=== PATIENT | female | born 1945 | race Caucasian/White ===

== ENCOUNTER 2017-08-26 11:20 | Outpatient (CLI) | payer MEDICARE | END 2017-08-26 11:21 | disposition home or self-care (01) | LOC: BICMAMMO 11:20 | PROVIDERS: ATTEND Internal Medicine | DX: Z12.31 Encounter for screening mammogram for malignant neoplasm of breast (principal) | CPT/HCPCS: 77063 ==

== ENCOUNTER 2018-03-06 07:44 | Outpatient (CLI) | payer MEDICARE ==
--- NOTE | 2018-03-06 09:55 | MRI ---
MRI BRAIN WITH AND WITHOUT IV CONTRAST: HISTORY: Essential tremor. FINDINGS: Comparison is made with the exam of 02/09/10. There is ventricular sulcal prominence due to cortical atrophy. Multiple foci of T2 prolongation is seen in the periventricular white matter consistent with chronic small-vessel ischemic disease. No r estricted diffusion is seen. No evidence of infarct, hemorrhage, mass, midline shift, or abnormal ex traaxial fluid collections is seen. No abnormal postcontrast enhancement is noted. The visualized paranasal sinuses and mastoid air cells are well aerated. IMPRESSION: 1. Cortical atrophy. 2. Chronic small-vessel ischemic disease. 3. No evidence of acute intracranial process or mass. POS: [facility]
[2018-03-06] MEDS ORDERED: Gadobenate Dimeglumine 529 MG/1 ML (20ML VIAL) ONE (11:29)
--- NOTE | 2018-03-06 12:14 | PET ---
PET CT OF THE BRAIN: HISTORY: Tremor, memory loss. TECHNIQUE: PET CT of the brain was performed following the intravenous administration of 8.4 mCi [id number]. FINDINGS: No significant hypometabolism is seen in either cerebral hemisphere. Uptake in the posterior cingulat e cortex appears normal. IMPRESSION: Unremarkable exam. POS: [facility]
== END 2018-03-06 07:45 | disposition home or self-care (01) ==
LOC: MRI 07:44
PROVIDERS: ATTEND Psychiatry & Neurology Neurology
DX: Z01.812 Encounter for preprocedural laboratory examination (principal); G25.0 Essential tremor; G31.1 Senile degeneration of brain, not elsewhere classified; G31.89 Other specified degenerative diseases of nervous system
CPT/HCPCS: 70553; 78608; 82565; A9552; 36415; A9579

== ENCOUNTER 2018-06-01 16:44 | Emergency (ER) | payer MEDICARE ==
[~2018-06-01 16:44] MED LIST: ISOVUE-370 76%-LOCM 1 ML ONE
[2018-06-01 17:17] LABS: #Eosinphils 0.1 thou/uL (0.0-0.7); #Lymphocytes 1.8 thou/uL (1.20-3.40); #Monocytes 0.7 thou/uL (0.11-0.59); #Neutrophils 4.6 thou/uL (1.40-6.50); %Basophils 0.2 % (0.0-1.0); %Lymphocytes 25.3 % (21.0-51.0); %Monocytes 9.8 % (0.0-10.0); %Neutrophils 63.6 % (42.0-75.0); Hemoglobin 13.2 g/dL (12.0-16.0); Mean Corpuscular HGB CONC 33.5 g/dL (32.0-36.0); Mean Corpuscular Volume 92.5 fL (78.0-98.0); Mean Platelet Volume 8.4 fL (7.4-10.4); Platelet Count 200 thou/uL (130-400); RBC Distribution Width 11.5 % (11.5-14.5); Red Blood Cell (RBC) Count 4.26 mill/uL (4.20-5.40); White Blood Cell (WBC) Count 7.2 thou/uL (4.8-10.8)
--- NOTE | 2018-06-01 17:36 | RAD ---
CHEST ONE VIEW: History: 73-year-old female with history of productive cough for four weeks with left lateral chest pain. Comparison: 02-26-17 FINDINGS: Monitor leads overlie the chest. Minimal linear stranding in the left base, evidence for some chronic change. The right lung is clear. Heart size is normal. IMPRESSION: Mild linear stranding left base which appears to be chronic. No significant acute intrathoracic disea se. Atherosclerosis of the aorta. POS: [facility]
[2018-06-01 17:39] LABS: ALT (SGPT) 13 U/L (8-55); AST (SGOT) 14 U/L (5-34); Albumin 4.3 g/dL (3.4-4.8); Alkaline Phosphatase 47 U/L (40-150); Anion Gap 13 mmol/L (10-20); BUN (Urea Nitrogen) 12 mg/dL (9.8-20.1); Bilirubin, Total 0.3 mg/dL (0.2-1.2); CK (CPK) 101 U/L (29-168); Calc. Creatinine Clearance 0 mL/min (70-130); Calcium 9.7 mg/dL (7.8-10.44); Carbon Dioxide 26 mmol/L (23-31); Chloride 106 mmol/L (98-107); Estimated GFR-MDRD 73; Glucose 123 mg/dL (83-110); Potassium 3.9 mmol/L (3.5-5.1); Protein, Total 7.3 g/dL (6.0-8.3); Sodium 141 mmol/L (136-145)
[2018-06-01 17:42] LABS: CKMB 1.4 ng/mL (0-6.6); Troponin I Less than 0.010 ng/mL (< 0.028)
--- NOTE | 2018-06-01 18:52 | CT ---
CT ARTERIOGRAM CHEST WITH IV CONTRAST AND 3D MIP IMAGING: History: Cough. Chest pain. FINDINGS: There is good contrast opacification of the pulmonary arteries and thoracic aorta with normal branchi ng of the great vessels. There is calcification in the arterial structures including the coronary art eries. Mild bibasilar atelectasis and scattered areas of scarring. No pneumothorax or mediastinal salazar nopathy. Gallbladder is surgically absent. IMPRESSION: 1. No CT evidence of pulmonary embolus. 2. Atherosclerosis. POS: [facility]
[2018-06-01 19:09] LABS: INR-International Normal Ratio 0.9; Prothrombin Time 12.4 SEC (12.0-14.7)
[2018-06-01 19:10] LABS: D-Dimer Test 0.84 *mcg/mL (0.27-0.43)
== END 2018-06-01 19:41 | disposition home or self-care (01) ==
LOC: ERS 16:44
DX: J18.9 Pneumonia, unspecified organism (principal); E78.5 Hyperlipidemia, unspecified; E03.9 Hypothyroidism, unspecified; Z87.891 Personal history of nicotine dependence; Z79.899 Other long term (current) drug therapy; Z79.82 Long term (current) use of aspirin
CPT/HCPCS: 36415; 71045; 71275; 80053; 82553; 84484; 85025; 85379; 85610; 85730; 93005

== ENCOUNTER 2018-06-27 09:51 | Emergency (ER) | payer MEDICARE ==
[2018-06-27 10:36] LABS: #Eosinphils 0.1 thou/uL (0.0-0.7); #Lymphocytes 1.2 thou/uL (1.20-3.40); #Monocytes 0.5 thou/uL (0.11-0.59); #Neutrophils 3.8 thou/uL (1.40-6.50); %Basophils 0.3 % (0.0-1.0); %Eosinophils 2.1 % (0.0-10.0); %Lymphocytes 21.4 % (21.0-51.0); %Monocytes 9.5 % (0.0-10.0); %Neutrophils 66.6 % (42.0-75.0); Hemoglobin 13.4 g/dL (12.0-16.0); Mean Corpuscular HGB CONC 32.7 g/dL (32.0-36.0); Mean Corpuscular Hemoglobin 30.4 pg (27.0-31.0); Mean Corpuscular Volume 93.1 fL (78.0-98.0); Mean Platelet Volume 8.7 fL (7.4-10.4); Platelet Count 200 thou/uL (130-400); RBC Distribution Width 11.8 % (11.5-14.5); Red Blood Cell (RBC) Count 4.41 mill/uL (4.20-5.40); White Blood Cell (WBC) Count 5.7 thou/uL (4.8-10.8)
--- NOTE | 2018-06-27 10:36 | RAD ---
CHEST 1 VIEW: Date: 06/27/18 HISTORY: Chest pain. COMPARISON: 06/01/18. FINDINGS: Cardiac silhouette is magnified by projection. Lungs remain slightly hyperinflated. Mediastinum midli ne with aortic calcification. No lobar consolidation or evidence of pneumothorax. monitor and storage bin tender gabriel ds overlie the chest. IMPRESSION: 1. Atherosclerosis. 2. Chronic-type findings are stable. POS: [facility]
[2018-06-27 10:59] LABS: ALT (SGPT) 11 U/L (8-55); AST (SGOT) 14 U/L (5-34); Albumin 4.3 g/dL (3.4-4.8); Alkaline Phosphatase 53 U/L (40-150); Anion Gap 14 mmol/L (10-20); BUN (Urea Nitrogen) 11 mg/dL (9.8-20.1); Bilirubin, Total 0.5 mg/dL (0.2-1.2); CK (CPK) 78 U/L (29-168); Calc. Creatinine Clearance 0 mL/min (70-130); Calcium 9.5 mg/dL (7.8-10.44); Carbon Dioxide 23 mmol/L (23-31); Chloride 109 mmol/L (98-107); Estimated GFR-MDRD 76; Globulin 2.6 g/dL (2.4-3.5); Glucose 116 mg/dL (83-110); Potassium 4.2 mmol/L (3.5-5.1); Protein, Total 6.9 g/dL (6.0-8.3); Sodium 142 mmol/L (136-145)
[2018-06-27 11:02] LABS: CKMB 1.3 ng/mL (0-6.6); Troponin I Less than 0.010 ng/mL (< 0.028)
== END 2018-06-27 11:41 | disposition home or self-care (01) ==
LOC: ERS 09:51
DX: R07.89 Other chest pain (principal); E78.5 Hyperlipidemia, unspecified; E03.9 Hypothyroidism, unspecified; Z79.82 Long term (current) use of aspirin; Z87.891 Personal history of nicotine dependence; Z79.899 Other long term (current) drug therapy
CPT/HCPCS: 71045; 80053; 82550; 82553; 84484; 85025; 93005

== ENCOUNTER 2018-09-03 14:30 | Outpatient (CLI) | payer MEDICARE | END 2018-09-03 14:31 | disposition home or self-care (01) | LOC: BICMAMMO 14:30 | PROVIDERS: ATTEND Internal Medicine | DX: Z12.31 Encounter for screening mammogram for malignant neoplasm of breast (principal); R92.1 Mammographic calcification found on diagnostic imaging of breast | CPT/HCPCS: 77063; 77067 ==

== ENCOUNTER 2019-06-05 13:18 | Emergency (ER) | payer MEDICARE ==
--- NOTE | 2019-06-05 14:21 | ULT ---
US Venous Doppler Rt Unilat History: Edema. Evaluate for thrombosis. Comparison: None. Findings: Real-time grayscale, color, and spectral analysis of the right lower extremity venous syste m was performed. The common femoral, femoral, proximal portions greater saphenous and deep femoral veins as well as the popliteal and posterior tibial veins were interrogated. Normal flow, augmentation, and compression. Impression: No deep venous thrombosis.
[2019-06-05 15:46] LABS: #Eosinphils 0.1 thou/uL (0.0-0.7); #Lymphocytes 1.8 thou/uL (1.20-3.40); #Monocytes 0.4 thou/uL (0.11-0.59); #Neutrophils 3.3 thou/uL (1.40-6.50); %Basophils 0.5 % (0.0-1.0); %Eosinophils 1.2 % (0.0-10.0); %Lymphocytes 32.7 % (21.0-51.0); %Monocytes 7.2 % (0.0-10.0); %Neutrophils 58.4 % (42.0-75.0); Hemoglobin 14.3 g/dL (12.0-16.0); Mean Corpuscular HGB CONC 33.2 g/dL (32.0-36.0); Mean Corpuscular Hemoglobin 30.1 pg (27.0-31.0); Mean Corpuscular Volume 90.6 fL (78.0-98.0); Mean Platelet Volume 8.5 fL (7.4-10.4); Platelet Count 231 thou/uL (130-400); RBC Distribution Width 11.5 % (11.5-14.5); Red Blood Cell (RBC) Count 4.74 mill/uL (4.20-5.40); White Blood Cell (WBC) Count 5.6 thou/uL (4.8-10.8)
[2019-06-05 16:06] LABS: ALT (SGPT) 20 U/L (8-55); AST (SGOT) 20 U/L (5-34); Albumin 4.6 g/dL (3.4-4.8); Alkaline Phosphatase 57 U/L (40-150); Anion Gap 14 mmol/L (10-20); BUN (Urea Nitrogen) 14 mg/dL (9.8-20.1); Bilirubin, Total 0.4 mg/dL (0.2-1.2); Calc. Creatinine Clearance 0 mL/min (70-130); Calcium 9.9 mg/dL (7.8-10.44); Carbon Dioxide 27 mmol/L (23-31); Chloride 105 mmol/L (98-107); Estimated GFR-MDRD 67; Globulin 3.1 g/dL (2.4-3.5); Glucose 148 mg/dL (83-110); Potassium 3.8 mmol/L (3.5-5.1); Protein, Total 7.7 g/dL (6.0-8.3); Sodium 142 mmol/L (136-145)
== END 2019-06-05 16:08 | disposition home or self-care (01) ==
LOC: ERS 13:18
DX: M79.661 Pain in right lower leg (principal); E03.9 Hypothyroidism, unspecified; E78.5 Hyperlipidemia, unspecified
CPT/HCPCS: 36415; 80053; 85025; 85379

== ENCOUNTER 2019-06-20 09:07 | Observation (INO) | payer MEDICARE ==
[2019-06-20 09:59] LABS: #Eosinphils 0.1 thou/uL (0.0-0.7); #Lymphocytes 1.3 thou/uL (1.20-3.40); #Monocytes 0.4 thou/uL (0.11-0.59); #Neutrophils 2.7 thou/uL (1.40-6.50); %Basophils 0.4 % (0.0-1.0); %Eosinophils 1.7 % (0.0-10.0); %Lymphocytes 29.7 % (21.0-51.0); %Neutrophils 59.2 % (42.0-75.0); Mean Corpuscular HGB CONC 33.5 g/dL (32.0-36.0); Mean Corpuscular Hemoglobin 30.5 pg (27.0-31.0); Mean Corpuscular Volume 90.9 fL (78.0-98.0); Mean Platelet Volume 7.9 fL (7.4-10.4); Platelet Count 209 thou/uL (130-400); RBC Distribution Width 11.6 % (11.5-14.5); Red Blood Cell (RBC) Count 4.28 mill/uL (4.20-5.40); White Blood Cell (WBC) Count 4.5 thou/uL (4.8-10.8)
[2019-06-20 10:05] LABS: INR-International Normal Ratio 0.9; PTT 28.1 SEC (22.9-36.1); Prothrombin Time 12.4 SEC (12.0-14.7)
[2019-06-20] MEDS ORDERED: Ondansetron PF 4 MG/2 ML Vial ONE ×2 (10:10→10:12)
[2019-06-20] MEDS ORDERED: Morphine 4 MG/ML VIAL ONE (10:10)
[2019-06-20] MEDS ORDERED: Adacel (T-DAP) 0.5 ML SYRINGE ONE (10:10)
[2019-06-20] MEDS ORDERED: diphenhydrAMINE 50 MG/ML VIAL ONE ×2 (10:10→10:12)
[2019-06-20 10:21] LABS: ALT (SGPT) 16 U/L (8-55); AST (SGOT) 12 U/L (5-34); Albumin 4.1 g/dL (3.4-4.8); Alkaline Phosphatase 45 U/L (40-110); Anion Gap 12 mmol/L (10-20); BUN (Urea Nitrogen) 12 mg/dL (9.8-20.1); Bilirubin, Total 0.4 mg/dL (0.2-1.2); Calc. Creatinine Clearance 0 mL/min (70-130); Calcium 9.1 mg/dL (7.8-10.44); Carbon Dioxide 27 mmol/L (23-31); Chloride 107 mmol/L (98-107); Estimated GFR-MDRD 75; Globulin 2.7 g/dL (2.4-3.5); Glucose 115 mg/dL (83-110); Potassium 3.5 mmol/L (3.5-5.1); Protein, Total 6.8 g/dL (6.0-8.3); Sodium 142 mmol/L (136-145)
[2019-06-20 12:14] LABS: Bilirubin Negative (Negative); Blood, Urine Negative (Negative); Clarity Clear (Clear); Glucose, Urine (Dipstick) Normal (Negative); Leukocyte Negative Leu/uL (Negative); Nitrite Negative (Negative); Protein, Urine (Dipstick) Negative (Neg-Trace); Urobilinogen Normal mg/dL (Less than 2)
[2019-06-20] MEDS ORDERED: Crotalidae Polyvlnt Antivenin 4 GM in Sodium Chloride 0.9% 250 ML 250 ML IVPB SCH (14:00)
[2019-06-20] MEDS ORDERED: Cepastat Lozenges 1 LOZ PO PRN (15:24)
[2019-06-20] MEDS ORDERED: Ondansetron ODT 4 MG TAB PO PRN (15:24)
[2019-06-20] MEDS ORDERED: Sodium Chloride 0.65% Nasal 44 ML BOT EA NARE PRN (15:24)
[2019-06-20] MEDS ORDERED: Artificial Tears 18 DROP/0.9 ML EA EYE PRN (15:24)
[2019-06-20] MEDS ORDERED: Loperamide HCl 2 MG CAP PO PRN (15:24)
[2019-06-20] MEDS ORDERED: Calcium Carbonate 500 MG ChewTAB PO PRN (15:24)
[2019-06-20] MEDS ORDERED: Loratadine 10 MG TAB PO PRN (15:24)
[2019-06-20] MEDS ORDERED: Diabetic Tussin 200 MG/10 ML UDCUP PO PRN (15:24)
[2019-06-20] MEDS ORDERED: Senokot S 8.6-50 MG TAB PO PRN (15:24)
[2019-06-20] MEDS ORDERED: Morphine 2 MG/ML SYRINGE SLOW IVP PRN (15:24)
[2019-06-20] MEDS ORDERED: hydrALAZINE 20 MG/ML VIAL SLOW IVP PRN (15:24)
[2019-06-20] MEDS ORDERED: Bisacodyl 10 MG SUPP PR PRN (15:24)
[2019-06-20] MEDS ORDERED: Zolpidem Tartrate 5 MG TAB PO PRN (15:24)
[2019-06-20] MEDS ORDERED: HYDROcodone/Acetaminophen 5/325 mg Tablet PO PRN (15:24)
[2019-06-20] MEDS ORDERED: Acetaminophen 325 MG TAB PO PRN (15:24)
[2019-06-20] MEDS ORDERED: Ondansetron PF 4 MG/2 ML Vial IVP PRN (15:24)
[2019-06-20 15:27] VITALS: BMI 27.3
--- NOTE | 2019-06-20 20:04 | HP ---
PRIMARY CARE PHYSICIAN: Dr. Nora Enciso. REASON FOR ADMISSION: Right ankle swelling secondary to snake bite. HISTORY OF PRESENT ILLNESS: A 74-year-old female, who has underlying history of dementia and hypothyroidism, who was walking this morning in her backyard along with her dog and she felt as if snake bite on her right ankle. As per the patient's , she was walking bare feet and grass was grown. The patient was not able to see snake, but she had 2 bite richey. The patient was hollering to get help from her , and subsequently, the patient was brought to emergency room. In the emergency room, while she was waiting, she was having increasing swelling over right ankle. She was not able to straighten out her foot and she was also feeling muscle discomfort on the right lower extremity. She was having throbbing pain. Her swelling marking was increasing and that is why ER physician decided to treat as if snake bite and the patient is being admitted to the hospital. She denies any shortness of breath. She denies any urticaria. She denies any bronchospasm. She denies any similar problem in the past. The patient has dementia, but she is able to drive by herself. She is pretty much active in her life. The patient is up to date in her tetanus shot. REVIEW OF SYSTEMS: CONSTITUTIONAL: Negative for weight loss or gain, ability to conduct usual activities. SKIN: Negative for rash, itching. EYES: Negative for double vision, pain. ENT/MOUTH: Negative for nose bleeding, neck stiffness, pain, tenderness. CARDIOVASCULAR: Negative for palpitations, dyspnea on exertion, orthopnea. RESPIRATORY: Negative for shortness of breath, wheezing, cough, hemoptysis, fever or night sweats. GASTROINTESTINAL: Negative for poor appetite, abdominal pain, heartburn, nausea, vomiting, constipation, or diarrhea. GENITOURINARY: Negative for urgency, frequency, dysuria, nocturia. MUSCULOSKELETAL: Negative for pain, swelling. NEUROLOGIC/PSYCHIATRIC: Negative for anxiety, depression. ALLERGY/IMMUNOLOGIC: Negative for skin rash, bleeding tendency. Please see my HPI for pertinent positives and negatives. All other review of systems reviewed and negative except as mentioned in HPI. PAST MEDICAL HISTORY: Hypothyroidism, dementia, essential tremor, dyslipidemia, history of bowel obstruction. PAST SURGICAL HISTORY: Cholecystectomy, hysterectomy, oophorectomy, tonsillectomy, tubal ligation. PAST PSYCHIATRIC HISTORY: Reviewed and negative. SOCIAL HISTORY: The patient is , [place] No history of tobacco, alcohol, or illicit drug abuse. FAMILY HISTORY: No strong family history of premature coronary artery disease, stroke, or cancer. ALLERGIES: CODEINE AND MECLIZINE. CURRENT HOME MEDICATIONS: 1. Aricept 10 mg daily. 2. Levothyroxine 50 mcg daily. 3. Aspirin 81 mg daily. 4. one tablet daily. EMERGENCY ROOM COURSE: The patient has received 4 vials of CroFab, IV fluid, Zofran, morphine, Benadryl, and tetanus toxoid. PHYSICAL EXAMINATION: VITAL SIGNS: On arrival, blood pressure 152/74, pulse 61, respiratory rate 16, temperature 97.9, saturation 98% on room air. Weight 81.6 kg. GENERAL: The patient is currently alert and oriented x3. No acute distress. HEENT: Head; normocephalic and atraumatic. Eyes; pupils round, reactive to light. Extraocular muscle intact. ENT; oropharynx within normal limits. Moist mucous membranes. No oral lesion. No pharyngeal erythema. No exudate. NECK: Supple. No JVD. No thyromegaly. No carotid bruit. No jugular venous distention. LUNGS: Clear to auscultation without any rhonchi or rales. CARDIAC: S1 and S2, regular without any murmur. No gallop. No rub. ABDOMEN: Soft. Bowel sounds present. Nontender. Nondistended. No organomegaly. No mass. No suprapubic tenderness. BACK: Unremarkable. No CVA tenderness. EXTREMITIES: Upper extremities; passive movement of all joints are normal. Lower extremity, right ankle has two puncture richey with right lateral side of the right foot is swollen, tender. The patient also has mildly ecchymosis and the swelling is spreading significantly throughout, tender. NEUROLOGIC: Nonfocal examination. SKIN: No skin rash. HEMATOLOGIC: No lymphadenopathy. NEUROLOGIC: Nonfocal examination. PSYCHIATRIC: Normal affect. SIGNIFICANT LABORATORY DATA: EKG showing normal sinus rhythm, within normal limits. CBC; WBC 4.5, hemoglobin 13.0, platelets 209. INR 0.9. Fibrinogen 363. BMP; sodium 142, potassium 3.5, chloride 107, carbon dioxide 27, BUN 12, creatinine 0.75, glucose 115, calcium 9.1. LFT; AST 12, ALT 16, alkaline phosphatase 45, albumin 4.1. Urinalysis, normal. ASSESSMENT AND PLAN: 1. Right ankle swelling with right foot swelling, most likely related to snake bite, based on clinical assessment, the patient has two bite ag and rapidly increasing swelling over foot, and based on clinical history, most likely snake bite and we will treat as if snake bite. The patient is receiving CroFab and will continue snake bite protocol treatment while in hospital. We will control her pain with morphine on p.r.n. basis. 2. Hypothyroidism. We will continue levothyroxine 50 mcg p.o. daily. 3. Dementia. We will continue Aricept 10 mg p.o. daily. 4. Dyslipidemia. 5. Benign essential tremor. 6. Deep venous thrombosis prophylaxis not needed because we are expecting discharge soon. Gastrointestinal prophylaxis, Pepcid 20 mg p.o. b.i.d. CODE STATUS: The patient is full code. The patient's is surrogate decision maker. DISPOSITION PLAN: Based on clinical course. Plan of care discussed with the patient and family member at bedside in the emergency room. Job ID: [id number]
[2019-06-20] MEDS: Famotidine 20 MG TAB PO SCH (20:45)
[2019-06-20] MEDS ORDERED: Donepezil HCl 10 MG TAB PO SCH (21:00)
[2019-06-21] MEDS ORDERED: Levothyroxine Sodium 50 MCG TAB PO SCH (06:00)
[2019-06-21 06:10] LABS: #Eosinphils 0.1 thou/uL (0.0-0.7); #Lymphocytes 1.6 thou/uL (1.20-3.40); #Monocytes 0.6 thou/uL (0.11-0.59); #Neutrophils 3.1 thou/uL (1.40-6.50); %Basophils 0.6 % (0.0-1.0); %Eosinophils 1.6 % (0.0-10.0); %Lymphocytes 29.1 % (21.0-51.0); %Monocytes 11.4 % (0.0-10.0); %Neutrophils 57.4 % (42.0-75.0); Hemoglobin 12.5 g/dL (12.0-16.0); Mean Corpuscular HGB CONC 33.4 g/dL (32.0-36.0); Mean Corpuscular Volume 89.9 fL (78.0-98.0); Mean Platelet Volume 8.2 fL (7.4-10.4); Platelet Count 208 thou/uL (130-400); RBC Distribution Width 11.7 % (11.5-14.5); Red Blood Cell (RBC) Count 4.17 mill/uL (4.20-5.40); White Blood Cell (WBC) Count 5.4 thou/uL (4.8-10.8)
[2019-06-21 06:16] LABS: INR-International Normal Ratio 0.9; PTT 27.2 SEC (22.9-36.1); Prothrombin Time 12.4 SEC (12.0-14.7)
[2019-06-21 06:31] LABS: Anion Gap 12 mmol/L (10-20); BUN (Urea Nitrogen) 12 mg/dL (9.8-20.1); Calc. Creatinine Clearance 91 mL/min (70-130); Calcium 8.7 mg/dL (7.8-10.44); Carbon Dioxide 26 mmol/L (23-31); Chloride 108 mmol/L (98-107); Estimated GFR-MDRD 83; Glucose 105 mg/dL (83-110); Potassium 3.7 mmol/L (3.5-5.1); Sodium 142 mmol/L (136-145)
[2019-06-21] MEDS: Famotidine 20 MG TAB PO SCH (08:34)
[2019-06-21] MEDS ORDERED: Aspirin Chewable 81 MG TAB PO SCH (09:00)
--- NOTE | 2019-06-21 09:42 | PDOC.HOSPP ---
- Subjective Encounter Date: 06/21/19 Encounter Time: 07:15 Subjective: Patient seen and examined. No overnight events she did not require any more dose of crofab her pain in right foot is stable and has not tried to walk yet - Objective Vital Signs & Weight: Vital Signs (12 hours) Temp Pulse Resp BP Pulse Ox 06/21/19 07:28 98.1 F 60 16 118/73 94 L 06/21/19 04:22 97.9 F 65 16 119/59 L 95 06/21/19 03:27 97 06/20/19 23:24 98.0 F 54 L 16 125/60 97 Weight Weight 179 lb 11.2 oz I&O: 06/20/19 06/21/19 06/22/19 06:59 06:59 06:59 Intake Total 1090 Output Total 650 Balance 440 Result Diagrams: 06/21/19 05:34 06/21/19 05:34 EKG Reviewed by me: Yes Hospitalist ROS - Review of Systems Constitutional: denies: fever, chills, sweats, weakness, malaise, other ENT: denies: ear pain, ear discharge, nose pain, nose discharge, nose congestion , mouth pain, mouth swelling, throat pain, throat swelling, other Respiratory: denies: cough, dry, shortness of breath, hemoptysis, SOB with excertion, pleuritic pain, sputum, wheezing, other Cardiovascular: denies: chest pain, palpitations, orthopnea, paroxysmal noc. dyspnea, edema, light headedness, other Gastrointestinal: denies: nausea, vomiting, abdominal pain, diarrhea, constipation, melena, hematochezia, other Genitourinary: denies: dysuria, frequency, incontinence, hematuria, retention, other Musculoskeletal: reports: foot pain. denies: neck pain, shoulder pain, arm pain , back pain, hand pain, leg pain, other Skin: denies: rash, lesions, christiana, bruising, other Neurological: denies: weakness, numbness, incoordination, change in speech, confusion, seizures, other - Medication Medications: Active Medications Generic Name Dose Route Start Last Admin Trade Name Freq PRN Reason Stop Dose Admin Aspirin 81 mg 06/21/19 09:00 06/21/19 08:34 Aspirin Chewable PO Not Given DAILY GURWINDER Donepezil HCl 10 mg 06/20/19 21:00 06/20/19 20:45 Aricept PO 10 mg HS GURWINDER Administration Famotidine 20 mg 06/20/19 21:00 06/21/19 08:34 Pepcid PO 20 mg BID GURWINDER Administration Levothyroxine Sodium 50 mcg 06/21/19 06:00 06/21/19 05:14 Synthroid PO 50 mcg 0600 GURWINDER Administration - Exam General Appearance: NAD, awake alert Eye: PERRL, anicteric sclera ENT: normocephalic atraumatic, no oropharyngeal lesions Neck: supple, symmetric, no JVD, no thyromegaly, no lymphadenopathy Heart: RRR, no murmur, no gallops, no rubs, normal peripheral pulses Respiratory: CTAB, no wheezes, no rales, no ronchi, normal chest expansion Gastrointestinal: soft, non-tender, non-distended, normal bowel sounds, no palpable masses, no hepatomegaly Extremities: no cyanosis, no clubbing Extremities - other findings: right foot swelling and tenderness Skin: normal turgor, no lesions, no rashes Neurological: cranial nerve grossly intact, normal sensation to touch, no focal deficits Musculoskeletal: normal tone, normal strength, no muscle wasting Psychiatric: normal affect, normal behavior, A&O x 3 Hosp A/P (1) Snake bite Code(s): W59.11XA - BITTEN BY NONVENOMOUS SNAKE, INITIAL ENCOUNTER Status: Acute (2) Swelling of right foot Code(s): M79.89 - OTHER SPECIFIED SOFT TISSUE DISORDERS Status: Acute (3) Dementia Code(s): F03.90 - UNSPECIFIED DEMENTIA WITHOUT BEHAVIORAL DISTURBANCE Status: Chronic (4) Hypothyroidism Code(s): E03.9 - HYPOTHYROIDISM, UNSPECIFIED Status: Chronic - Plan old records reviewed/req 06/21/19- overall stable, will see today if she is able to walk and her pain is controlled, will monitor, expecting discharge soon, may be today or tomorrow, medication reviewed as above, symptomatic treatment
[2019-06-21 11:35] VITALS: BP 127/67; TEMP 98.5
--- NOTE | 2019-06-21 12:23 | DIS ---
DATE OF ADMISSION: 06/20/2019 DATE OF DISCHARGE: 06/21/2019 PRIMARY CARE PHYSICIAN: Dr. Nora Enciso. DISCHARGE DISPOSITION: Home. PRIMARY DISCHARGE DIAGNOSIS: Swelling of right foot due to snake bite. SECONDARY DISCHARGE DIAGNOSES: 1. Dementia. 2. Hypothyroidism. PRIMARY PROCEDURE/OPERATION: None. RADIOLOGICAL INVESTIGATION: None. SIGNIFICANT LABORATORY DATA: CBC, BMP, coagulation profile, urinalysis normal. DISCHARGE MEDICATIONS: 1. Aspirin 81 mg daily. 2. Aricept 10 mg p.o. daily. 3. Synthroid 50 mcg p.o. daily. CONTRAINDICATION: None. CODE STATUS: Full code. INPATIENT MOTORCYCLE DELIVERER: None. ALLERGIES: 1. CODEINE. 2. MECLIZINE. DISCHARGE PLAN: Posthospital, the patient will follow up with primary care physician in 1 week. HOSPITAL COURSE: A 74-year-old female, who was admitted by me. Please see my HPI for further details. The patient was in her backyard and she was bit by something, she was not able to see, but we suspected snake bite and she was treated with CroFab with significant improvement. The patient's pain is under control. The patient wants to go home today and she did not require any maintenance CroFab. The patient is seen and examined at bedside today. Please see my progress note from today for further detail. Job ID: [id number]
--- NOTE | 2019-06-27 14:42 | EKG ---
Test Reason : Blood Pressure : / mmHG Vent. Rate : 066 BPM Atrial Rate : 066 BPM P-R Int : 166 ms QRS Dur : 072 ms QT Int : 408 ms P-R-T Axes : 057 -17 060 degrees QTc Int : 427 ms Normal sinus rhythm Nonspecific ST abnormality Abnormal ECG Confirmed by RADHA HARPER DO ([id number]), city editor ANGEL MCGRATH ([id number]) on 06/27/2019 2:41:54 PM Referred By: Confirmed By:RADHA HARPER DO
== END 2019-06-21 12:31 | disposition home or self-care (01) ==
LOC: ERS 09:07 → 2SW 14:48
PROVIDERS: ADMIT Internal Medicine; ATTEND Internal Medicine
DX: T63.001A Toxic effect of unspecified snake venom, accidental (unintentional), initial encounter (principal); M79.89 Other specified soft tissue disorders; M25.471 Effusion, right ankle; E03.9 Hypothyroidism, unspecified; F03.90 Unspecified dementia, unspecified severity, without behavioral disturbance, psychotic disturbance, mood disturbance, and anxiety; G25.0 Essential tremor; E78.5 Hyperlipidemia, unspecified; Z79.82 Long term (current) use of aspirin; Z79.899 Other long term (current) drug therapy; Z88.5 Allergy status to narcotic agent
CPT/HCPCS: 80048; 80053; 81003; 82550; 85025 ×2; 85384 ×2; 85610 ×2; 85730 ×2; 86850; 86900; 86901; 90471; 90715; 93005; 96361; 96365; 96366; 96375; 99284; G0378 ×3; J0840; 36415; 96374; J1200; J2270; J2405; J7050

== ENCOUNTER 2019-06-23 12:12 | Emergency (ER) | payer MEDICARE ==
[2019-06-23 13:12] LABS: #Eosinphils 0.1 thou/uL (0.0-0.7); #Lymphocytes 1.5 thou/uL (1.20-3.40); #Monocytes 0.4 thou/uL (0.11-0.59); #Neutrophils 3.5 thou/uL (1.40-6.50); %Basophils 0.5 % (0.0-1.0); %Lymphocytes 27.9 % (21.0-51.0); %Monocytes 7.4 % (0.0-10.0); %Neutrophils 63.1 % (42.0-75.0); Hemoglobin 12.6 g/dL (12.0-16.0); Mean Corpuscular HGB CONC 33.5 g/dL (32.0-36.0); Mean Corpuscular Hemoglobin 30.2 pg (27.0-31.0); Mean Corpuscular Volume 90.2 fL (78.0-98.0); Mean Platelet Volume 8.1 fL (7.4-10.4); Platelet Count 218 thou/uL (130-400); RBC Distribution Width 11.6 % (11.5-14.5); Red Blood Cell (RBC) Count 4.18 mill/uL (4.20-5.40); White Blood Cell (WBC) Count 5.5 thou/uL (4.8-10.8)
[2019-06-23 13:18] LABS: PTT 25.9 SEC (22.9-36.1); Prothrombin Time 13.1 SEC (12.0-14.7)
--- NOTE | 2019-06-23 13:35 | ULT ---
EXAM: Right lower extremity venous Doppler HISTORY: Right leg pain and swelling after a snake bite. FINDINGS: Grayscale, color-flow, Doppler evaluation, spectral analysis of the right lower extremity venous stru ctures is performed with 2-D imaging. The right common femoral, superficial femoral, popliteal, posterior tibial, proximal greater saphenous and profunda femoral veins are imaged. There is normal luminal compressibility, flow, and augmentation in the visualized deep venous structu res of the right lower extremity. IMPRESSION: No evidence of a deep vein thrombosis in the visualized deep venous structures right lower extremity.
[2019-06-23 13:39] LABS: ALT (SGPT) 17 U/L (8-55); AST (SGOT) 14 U/L (5-34); Alkaline Phosphatase 48 U/L (40-110); Anion Gap 14 mmol/L (10-20); BUN (Urea Nitrogen) 17 mg/dL (9.8-20.1); Bilirubin, Total 0.3 mg/dL (0.2-1.2); Calc. Creatinine Clearance 0 mL/min (70-130); Carbon Dioxide 23 mmol/L (23-31); Chloride 108 mmol/L (98-107); Estimated GFR-MDRD 68; Globulin 2.9 g/dL (2.4-3.5); Glucose 125 mg/dL (83-110); Potassium 3.7 mmol/L (3.5-5.1); Protein, Total 6.9 g/dL (6.0-8.3); Sodium 141 mmol/L (136-145)
== END 2019-06-23 14:20 | disposition home or self-care (01) ==
LOC: ERS 12:12
DX: R60.0 Localized edema (principal); S81.851D Open bite, right lower leg, subsequent encounter; E03.9 Hypothyroidism, unspecified; E78.5 Hyperlipidemia, unspecified; Z79.899 Other long term (current) drug therapy; Z79.82 Long term (current) use of aspirin
CPT/HCPCS: 36415; 80053; 85025; 85610; 85730

== ENCOUNTER 2019-07-16 13:42 | Observation (INO) | payer MEDICARE ==
[2019-07-16] MEDS ORDERED: Fentanyl 100 MCG/2 ML VIAL ONE (14:14)
[2019-07-16] MEDS ORDERED: Ondansetron PF 4 MG/2 ML Vial ONE (14:27)
--- NOTE | 2019-07-16 14:38 | RAD ---
LEFT HIP 2 VIEWS: HISTORY: Fall, left hip pain FINDINGS: There is a questionable nondisplaced fracture involving the superior aspect of the subcapital neck of the left femur. Further evaluated with CT scan would be helpful.
[2019-07-16] MEDS ORDERED: Promethazine HCl 25 MG/ML VIAL ONE (15:02)
--- NOTE | 2019-07-16 15:04 | RAD ---
AP PELVIS: HISTORY: Fall with injury to left hip and pelvis. FINDINGS: The left femoral neck is not well positioned and the left hemipelvis is poorly positioned. A linear l ucency running in the left ilium which appears to extend to the roof of the acetabulum. This is suspi cious for an acute fracture. Recommend CT pelvis to further characterize. IMPRESSION: Evidence of left pelvic fracture. Recommend further evaluation. POS: [facility]
--- NOTE | 2019-07-16 15:26 | CT ---
CT PELVIS WITHOUT CONTRAST: HISTORY: Fall, left hip pain FINDINGS: There are fractures involving the anterior column and roof of the left acetabulum with extension supe riorly into the left iliac bone. There is mild displacement of the fractures involving the anterior column of the left acetabulum. No intra-articular bony fragments is seen. The proximal femurs are intact. No hip dislocation is seen . There is a tiny amount of air in the nondependent portions of the distended urinary bladder. Clinical correlation for recent instrumentation is recommended. IMPRESSION: Fractures of the left acetabulum and iliac bones.
--- NOTE | 2019-07-16 16:03 | RAD ---
Exam: Chest one view HISTORY:Fall Comparison: 01/16/2019 FINDINGS: Lungs: No masses or consolidation. Mild interstitial prominence. Cardiac silhouette:Accentuated by technique. Vascular calcification. Pulmonary vessels: Mild vascular congestion Pleural Spaces: Clear Pneumothorax: None Osseous abnormalities: None of acuity. IMPRESSION: Findings indicate mild fluid overload. Correlate clinically.
[2019-07-16 16:08] LABS: Bilirubin Negative (Negative); Blood, Urine Negative (Negative); Clarity Clear (Clear); Glucose, Urine (Dipstick) Normal (Negative); Leukocyte Negative Leu/uL (Negative); Nitrite Negative (Negative); Protein, Urine (Dipstick) Negative (Neg-Trace); Urobilinogen Normal mg/dL (Less than 2)
[2019-07-16] MEDS ORDERED: Ketorolac Tromethamine 30 MG/ML VIAL ONE (16:09)
[2019-07-16 16:48] LABS: #Eosinphils 0.1 thou/uL (0.0-0.7); #Monocytes 0.9 thou/uL (0.11-0.59); #Neutrophils 11.9 thou/uL (1.40-6.50); %Eosinophils 0.5 % (0.0-10.0); %Lymphocytes 7.3 % (21.0-51.0); %Monocytes 6.3 % (0.0-10.0); Hemoglobin 12.8 g/dL (12.0-16.0); Mean Corpuscular HGB CONC 32.2 g/dL (32.0-36.0); Mean Corpuscular Hemoglobin 29.4 pg (27.0-31.0); Mean Corpuscular Volume 91.2 fL (78.0-98.0); Mean Platelet Volume 8.5 fL (7.4-10.4); Platelet Count 207 thou/uL (130-400); RBC Distribution Width 11.8 % (11.5-14.5); Red Blood Cell (RBC) Count 4.36 mill/uL (4.20-5.40); White Blood Cell (WBC) Count 13.8 thou/uL (4.8-10.8)
[2019-07-16 16:59] LABS: ALT (SGPT) 16 U/L (8-55); AST (SGOT) 24 U/L (5-34); Albumin 4.3 g/dL (3.4-4.8); Alkaline Phosphatase 49 U/L (40-110); Anion Gap 15 mmol/L (10-20); BUN (Urea Nitrogen) 14 mg/dL (9.8-20.1); Bilirubin, Total 0.5 mg/dL (0.2-1.2); Calc. Creatinine Clearance 0 mL/min (70-130); Calcium 9.3 mg/dL (7.8-10.44); Carbon Dioxide 22 mmol/L (23-31); Chloride 106 mmol/L (98-107); Estimated GFR-MDRD 77; Globulin 3.5 g/dL (2.4-3.5); Glucose 96 mg/dL (83-110); Potassium 4.5 mmol/L (3.5-5.1); Protein, Total 7.8 g/dL (6.0-8.3); Sodium 138 mmol/L (136-145)
[2019-07-16 17:09] LABS: PTT 27.7 SEC (22.9-36.1)
--- NOTE | 2019-07-16 18:18 | HP ---
This is Luke Tabor PA-C dictating a report for Hilario Nichols DO. REQUESTING PHYSICIAN: Prosper Silva DO CONSULTATIONS: Orthopedics, Dr. Dorman. HISTORY OF PRESENT ILLNESS: The patient is a 74-year-old woman, who was walking in her home today on the hardwood floor. Her feet were wet. She slipped and fell landing on her left side. She had significant pain to her left hip, was unable to ambulate, was able to summon help. She was brought to the emergency department, where she underwent evaluation and examination, and was noted to have a nondisplaced left acetabular fracture, at which time the ER attempted to get her into [facility]. Unfortunately, due to insurance approval, we were unable to make this happen, so the patient is being admitted for pain control and to begin physical and occupational therapy. The patient denied any loss of consciousness and she denies blood thinners with the exception of one baby aspirin per day. ALLERGIES: CODEINE AND MECLIZINE. CURRENT MEDICATIONS: 1. Donepezil. 2. Levothyroxine. 3. Aspirin. 4. Trintex. PAST MEDICAL HISTORY: Hypothyroidism, hyperlipidemia, "memory issues," and depression. PAST SURGICAL HISTORY: Cholecystectomy, hysterectomy, oophorectomy, tonsillectomy, and bilateral tubal ligation. SOCIAL HISTORY: The patient denies drug, tobacco, or alcohol use. She lives independently at home with her spouse. REVIEW OF SYSTEMS: Ten-point review of systems is negative except as otherwise stated. PHYSICAL EXAMINATION: VITAL SIGNS: Blood pressure 127/75, heart rate 65, respirations 16, oxygen saturation 95% on room air, and temperature is 98.0. GENERAL: The patient is resting comfortably in bed. She is awake, alert, and oriented x3. Beatrice Coma Scale is 15. HEENT: Head is normocephalic, atraumatic. Eyes; her extraocular motion intact. PERRLA bilaterally. Ears are atraumatic without discharge. Nose is atraumatic without discharge. Oropharynx is clear. NECK: Nontender. Trachea is midline. No JVD. CHEST: Clear to auscultation with good inspiratory and expiratory effort. HEART: Regular rate and rhythm. ABDOMEN: Soft, flat, and nontender with active bowel sounds. PELVIS: Stable with tenderness to palpation to the left hip consistent with her fracture. EXTREMITIES: Neurovascularly intact x4. BACK: Atraumatic and nontender by report. LABORATORY FINDINGS: White blood cell count 13.8, hemoglobin 12.8, hematocrit 39.8, and platelets 207. Sodium 138, potassium 4.5, chloride 106, CO2 of 22, BUN 14, creatinine 0.74, and glucose 96. LFTs are unremarkable. PT 13, INR 1.0, and PTT 28. Urinalysis is unremarkable. RADIOGRAPHS: AP chest x-ray show questionable findings of mild fluid overload. AP pelvis shows evidence of a pelvic fracture on the left. CT of the pelvis confirms a left acetabular fracture involving the anterior column. Views of the left hip show a questionable nondisplaced fracture involving the superior aspect of subcapital neck of the left femur. This was not seen with the CT exam. ASSESSMENT AND PLAN: 1. Status post mechanical fall. 2. Left acetabular fracture. 3. Left hip contusion. 4. History of hypothyroidism, hyperlipidemia. 5. Acute pain secondary to trauma. PLAN: Will be to admit the patient to the surgical floor. She will be on the observation status for pain control, pulmonary toilet, gastritis, and mechanical VTE prophylaxis. The patient may have chemical VTE prophylaxis tomorrow. Per discussion with Dr. Dorman, she will be nonweightbearing on the left and we will have Physical and Occupational therapy begin work with her and begin the placement process. The evaluation, examination, laboratory, and radiographic findings will be discussed with Dr. Nichols after this dictation. Job ID: [id number]
[2019-07-16] MEDS ORDERED: Ondansetron PF 4 MG/2 ML Vial IVP PRN (20:54)
[2019-07-16] MEDS ORDERED: Ondansetron ODT 4 MG TAB PO PRN (20:54)
[2019-07-16] MEDS ORDERED: Dextrose 5% in Water 1,000 ML IV PRN (20:54)
[2019-07-16] MEDS ORDERED: Cyclobenzaprine 10 MG TAB PO PRN (20:54)
[2019-07-16] MEDS ORDERED: traMADol HCl 50 MG TAB PO PRN ×2 (20:54)
[2019-07-16] MEDS ORDERED: Dextrose 50% Abboject 50 ML SYRINGE SLOW IVP PRN (20:54)
[2019-07-16] MEDS ORDERED: Famotidine 20 MG TAB PO SCH (21:00)
[2019-07-16] MEDS: Acetaminophen 325 MG TAB PO SCH (21:27)
[2019-07-16] MEDS: Ibuprofen 800 MG TAB PO SCH (21:27)
[2019-07-16 22:40] VITALS: BMI 19.3
--- NOTE | 2019-07-17 02:18 | PRG ---
DATE OF SERVICE: 07/16/2019 SUBJECTIVE: The patient was seen this evening, lying in bed. She was easily arousable and reported no acute events. She had no needs at the time of my evaluation. OBJECTIVE: VITAL SIGNS: Temperature 98.3, pulse 61, respirations 16, oxygen saturation 95% on room air, blood pressure 144/65. GENERAL: Well-appearing elderly female, lying in bed with no signs of acute distress. PULMONARY: Equal chest rise and fall. No signs of acute respiratory distress. ASSESSMENT: 1. Status post mechanical fall from standing. 2. Left-sided acetabular fracture, nonoperative. 3. History of dementia, hyperlipidemia, and hypothyroidism. PLAN: Continue current diet and pain regimen. Continue physical and occupational therapy. The patient will be restarted on her home medications as clinically indicated. Job ID: [id number]
[2019-07-17] MEDS: Acetaminophen 325 MG TAB PO SCH ×4 (03:37→21:32)
[2019-07-17] MEDS: Ibuprofen 800 MG TAB PO SCH ×3 (05:45→21:33)
[2019-07-17] MEDS: Levothyroxine Sodium 50 MCG TAB PO SCH (05:45)
[2019-07-17] MEDS: Cyanocobalamin (Vitamin B-12) 1,000 MCG TAB PO SCH (09:22)
[2019-07-17] MEDS: Donepezil HCl 10 MG TAB PO SCH (09:22)
[2019-07-17] MEDS: Aspirin 81 mg Enteric Coated Tablet PO SCH ×2 (09:23→21:32)
[2019-07-17] MEDS: VORTIOXETINE HYDROBROMIDE 5 MG PO SCH (16:49)
--- NOTE | 2019-07-17 18:27 | PRG ---
DATE OF SERVICE: 07/17/2019 SUBJECTIVE: The patient is currently on the surgical floor. She is hospital day #2, status post ground level fall, which she sustained a left acetabular fracture. The patient was evaluated by Orthopedics and recommended a nonoperative approach to this. The patient and were in agreement with this. She is currently awaiting physical and occupational therapy and placement decisions. The patient had no issues overnight. She is tolerating a diet and her pain is controlled. OBJECTIVE: VITAL SIGNS: Temperature is 98.0, heart rate 62, blood pressure 109/54, respirations are 16, oxygen saturation 95% on room air. GENERAL: The patient is resting comfortably in bed. She is awake, alert, conversant, and appears appropriate, and very talkative. HEENT: Unremarkable. LUNGS: Clear to auscultation bilaterally with good inspiratory and expiratory effort. HEART: Regular rate and rhythm. ABDOMEN: Soft, flat, and nontender with active bowel sounds. EXTREMITIES: Neurovascularly intact x4. LABORATORY FINDINGS: There are no labs or radiographs reviewed this morning. ASSESSMENT AND PLAN: 1. Status post ground level fall. 2. Left acetabular fracture, treated nonoperatively. 3. Left hip contusion, stable, improved. 4. History of hypothyroidism and hyperlipidemia. 5. Acute pain secondary to trauma, improved. Plan will be to continue physical and occupational therapy, supportive care and await final placement decision. Job ID: [id number]
--- NOTE | 2019-07-18 01:02 | PRG ---
DATE OF SERVICE: 07/17/2019 SUBJECTIVE: Patient was seen this evening during rounds. She was lying in bed, asleep, with no signs of acute distress. Nursing reported no acute events. OBJECTIVE: VITAL SIGNS: Temperature 97.7, pulse 51, respirations 16, oxygen saturation 96% on room air, blood pressure 119/56. GENERAL: Well-appearing elderly female, lying in bed with no signs of acute distress. PULMONARY: Equal chest rise and fall. No signs of acute respiratory distress. ASSESSMENT: 1. Status post mechanical fall, on aspirin. 2. Left acetabular fracture, nonoperative. 3. History of dementia, hyperlipidemia, and hypothyroidism. PLAN: Continue supportive care as well as physical and occupational therapy. Continue current diet and pain regimen. The patient is ready for discharge at this time and is pending placement. Job ID: [id number]
[2019-07-18] MEDS: Acetaminophen 325 MG TAB PO SCH ×4 (03:52→20:48)
[2019-07-18] MEDS: Levothyroxine Sodium 50 MCG TAB PO SCH (05:25)
[2019-07-18] MEDS: Ibuprofen 800 MG TAB PO SCH ×2 (05:25→14:23)
[2019-07-18] MEDS: Polyethylene Glycol 3350 17 GM Packet PO SCH (09:13)
[2019-07-18] MEDS: Senokot S 8.6-50 MG TAB PO SCH ×2 (09:14→20:52)
[2019-07-18] MEDS: Donepezil HCl 10 MG TAB PO SCH (09:14)
[2019-07-18] MEDS: Aspirin 81 mg Enteric Coated Tablet PO SCH ×2 (09:14→20:48)
[2019-07-18] MEDS: Cyanocobalamin (Vitamin B-12) 1,000 MCG TAB PO SCH (09:14)
[2019-07-18] MEDS: Polyvinyl Alcohol 1.4%/Povidone 0.6% Opth Drops EA EYE SCH ×2 (14:24→20:52)
--- NOTE | 2019-07-18 14:56 | PRG ---
DATE OF SERVICE: 07/18/2019 SUBJECTIVE: The patient is currently on the surgical floor. She is status post ground level fall when she sustained a left acetabular fracture. This fracture is being treated nonoperatively. She was admitted to await placement and pain control. She has been doing well. She started working with physical and occupational therapy and she is tolerating a diet. OBJECTIVE: VITAL SIGNS: Temperature is 97.6, heart rate 59, blood pressure 132/63, respirations 20, oxygen saturation 95% on room air. GENERAL: The patient is resting comfortably in bed. She is awake, alert, oriented, appropriate. HEENT: Unremarkable. LUNGS: Clear to auscultation bilaterally. HEART: Regular rate and rhythm. ABDOMEN: Soft, flat, nontender with active bowel sounds. EXTREMITIES: Neurovascularly intact x4. LABORATORY DATA: There are no labs or radiographs to review this morning. ASSESSMENT: 1. Status post ground level fall. 2. Left acetabular fracture, being treated nonoperatively. 3. Left hip contusion, stable. 4. History of hypothyroidism, hyperlipidemia. PLAN: Plan will be to continue physical and occupational therapy, supportive care and await final placement determination decision by family. Job ID: [id number]
[2019-07-18] MEDS: VORTIOXETINE HYDROBROMIDE 5 MG PO SCH (16:03)
[2019-07-18] MEDS: Ibuprofen 600 MG TAB PO SCH (20:54)
--- NOTE | 2019-07-19 02:04 | PRG ---
DATE OF SERVICE: 07/19/2019 SUBJECTIVE: The patient was seen this evening during rounds, resting comfortably and asleep with no signs of acute distress. Nursing reported no acute events. OBJECTIVE: VITAL SIGNS: Temperature 98.2, pulse 63, respirations 16, oxygen saturation 92% on room air, blood pressure 130/60. GENERAL: Well-appearing elderly female, lying in bed with no signs of acute distress. PULMONARY: Equal chest rise and fall. No signs of acute respiratory distress. ASSESSMENT: 1. Status post ground level fall. 2. Left acetabular fracture, nonoperative. 3. Left hip contusion, stable. 4. History of hypothyroidism and hyperlipidemia. PLAN: Continue current diet and pain regimen. Continue physical and occupational therapy. The patient is pending placement at this time. She is ready for discharge. Job ID: [id number]
[2019-07-19] MEDS: Levothyroxine Sodium 50 MCG TAB PO SCH (05:22)
[2019-07-19] MEDS: Acetaminophen 325 MG TAB PO SCH ×4 (05:22→20:42)
[2019-07-19] MEDS: Ibuprofen 600 MG TAB PO SCH ×3 (05:22→20:42)
[2019-07-19] MEDS: Senokot S 8.6-50 MG TAB PO SCH ×2 (08:48→20:48)
[2019-07-19] MEDS: Aspirin 81 mg Enteric Coated Tablet PO SCH ×2 (08:48→20:42)
[2019-07-19] MEDS: Cyanocobalamin (Vitamin B-12) 1,000 MCG TAB PO SCH (08:48)
[2019-07-19] MEDS: Donepezil HCl 10 MG TAB PO SCH (08:48)
[2019-07-19] MEDS: Polyethylene Glycol 3350 17 GM Packet PO SCH (08:49)
[2019-07-19] MEDS: Polyvinyl Alcohol 1.4%/Povidone 0.6% Opth Drops EA EYE SCH ×3 (08:51→20:43)
[2019-07-19] MEDS: VORTIOXETINE HYDROBROMIDE 5 MG PO SCH (09:21)
--- NOTE | 2019-07-19 14:35 | PRG ---
DATE OF SERVICE: 07/19/2019 SUBJECTIVE: The patient is currently on the surgical floor. She is status post ground level fall, from which she sustained a left acetabular fracture. She is being treated nonoperatively. She has been awaiting placement and she has been progressing with physical and occupational therapy. She is tolerating a diet and her pain is controlled. OBJECTIVE: VITAL SIGNS: Temperature is 97.9, heart rate 60, blood pressure 127/64, respirations 16, oxygen saturation 97% on room air. GENERAL: The patient is resting comfortably in bed. She is awake, alert, and oriented x3. Beatrice Coma Scale is 15. HEENT: Unremarkable. LUNGS: Clear to auscultation bilaterally with good inspiratory and expiratory effort. HEART: Regular rate and rhythm. ABDOMEN: Soft, nontender with active bowel sounds. EXTREMITIES: Neurovascularly intact x4. LABORATORY AND DIAGNOSTIC DATA: There are no labs or radiographs to review this morning. ASSESSMENT: 1. Status post ground level fall. 2. Left acetabular fracture, treated nonoperatively. 3. Left hip contusion, stable. 4. History of hypothyroidism, hyperlipidemia, and "short-term memory loss.". PLAN: Plan will be to continue supportive therapy, physical and occupational therapy. We will give the patient lactulose this morning and she has not had a bowel movement since being hospitalized. We will await final placement decision. Job ID: [id number]
--- NOTE | 2019-07-20 02:38 | PRG ---
DATE OF SERVICE: SUBJECTIVE: Patient was seen this evening during rounds. She was lying in bed and asleep with no signs of acute distress. Nursing reported no acute events. OBJECTIVE: VITAL SIGNS: Temperature 97.4, pulse 57, respirations 16, oxygen saturation 97% on room air, and blood pressure 137/63. GENERAL: Well-appearing elderly female, lying in bed with no signs of acute distress. PULMONARY: Equal chest rise and fall. No signs of acute distress. ASSESSMENT: 1. Status post ground level fall. 2. Left acetabular fracture, nonoperative. 3. Left hip contusion, stable. 4. History of hypothyroid, hyperlipidemia, and short-term memory loss. PLAN: Continue supportive care as well as physical and occupational therapy. Continue current diet and pain regimen. She is pending placement at rehab at this time. She is ready for discharge. Job ID: [id number]
[2019-07-20] MEDS: Acetaminophen 325 MG TAB PO SCH ×4 (03:29→21:15)
[2019-07-20] MEDS: Levothyroxine Sodium 50 MCG TAB PO SCH (05:30)
[2019-07-20] MEDS: Ibuprofen 600 MG TAB PO SCH ×3 (05:30→21:15)
[2019-07-20] MEDS: Polyvinyl Alcohol 1.4%/Povidone 0.6% Opth Drops EA EYE SCH ×3 (08:24→20:40)
[2019-07-20] MEDS: VORTIOXETINE HYDROBROMIDE 5 MG PO SCH (08:24)
[2019-07-20] MEDS: Donepezil HCl 10 MG TAB PO SCH (08:25)
[2019-07-20] MEDS: Senokot S 8.6-50 MG TAB PO SCH ×2 (08:25→20:38)
[2019-07-20] MEDS: Aspirin 81 mg Enteric Coated Tablet PO SCH ×2 (08:25→20:38)
[2019-07-20] MEDS: Polyethylene Glycol 3350 17 GM Packet PO SCH (08:25)
[2019-07-20] MEDS: Cyanocobalamin (Vitamin B-12) 1,000 MCG TAB PO SCH (08:26)
--- NOTE | 2019-07-20 17:38 | PRG ---
DATE OF SERVICE: 07/20/2019 SUBJECTIVE: This is a 74-year-old female, status post ground level fall in which she sustained a left acetabular fracture. The patient is currently being treated nonoperatively. The patient remains on the surgical floor. The patient is awaiting placement and approval to inpatient rehab for continued physical and occupational therapy. The patient continues to tolerate a diet and her pain is controlled at this time. The patient denies any complaints at this time. OBJECTIVE: VITAL SIGNS: Temperature 97.3, pulse 51, respirations 16, SpO2 of 96% on room air, and blood pressure 149/71. GENERAL: Resting comfortably in bed. The patient is awake and alert, in no distress. HEENT: Unremarkable. LUNGS: Clear bilateral, good inspiratory and expiratory effort. No respiratory distress. HEART: Regular rate and rhythm, mildly bradycardic. EXTREMITIES: Neurovascularly intact x4. LABORATORY DATA: There are no labs to evaluate today. DIAGNOSTIC DATA: There are no diagnostics to review today. ASSESSMENT: 1. Status post ground level fall. 2. Left acetabular fracture, treated nonoperatively. 3. Left hip contusion, stable. 4. History of hypothyroidism, hyperlipidemia, and short-term memory loss. PLAN: Continue supportive therapy, physical and occupational therapy. Awaiting placement on approval to inpatient rehab. The patient was examined by Dr. Nichols during morning rounds. The plan was discussed with the patient and family, who agree. Job ID: [id number]
--- NOTE | 2019-07-21 01:48 | PRG ---
DATE OF SERVICE: 07/21/2019 SUBJECTIVE: The patient was seen this evening during rounds. She was resting comfortably and asleep with no signs of acute distress. Nursing reported no acute events. OBJECTIVE: VITAL SIGNS: Temperature 97.7, pulse 65, respirations 16, oxygen saturation 96% on room air, blood pressure 132/71. GENERAL: Well-appearing elderly female, lying in bed with no signs of acute distress. PULMONARY: Equal chest rise and fall. No signs of acute respiratory distress. ASSESSMENT: 1. Status post mechanical fall. 2. Left acetabular fracture, nonoperative. 3. Left hip contusion. 4. History of hypothyroidism, hyperlipidemia, and short-term memory loss. PLAN: Continue current diet and pain regimen. The patient is pending placement at acute rehab facility. She is ready for discharge at this time. Job ID: [id number]
[2019-07-21] MEDS: Acetaminophen 325 MG TAB PO SCH ×4 (04:59→23:07)
[2019-07-21] MEDS: Levothyroxine Sodium 50 MCG TAB PO SCH (05:01)
[2019-07-21] MEDS: Ibuprofen 600 MG TAB PO SCH ×3 (05:01→21:03)
[2019-07-21] MEDS: Aspirin 81 mg Enteric Coated Tablet PO SCH ×2 (08:26→21:03)
[2019-07-21] MEDS: Senokot S 8.6-50 MG TAB PO SCH ×2 (08:27→21:03)
[2019-07-21] MEDS: Polyethylene Glycol 3350 17 GM Packet PO SCH (08:27)
[2019-07-21] MEDS: Cyanocobalamin (Vitamin B-12) 1,000 MCG TAB PO SCH (08:27)
[2019-07-21] MEDS: VORTIOXETINE HYDROBROMIDE 5 MG PO SCH (08:28)
[2019-07-21] MEDS: Polyvinyl Alcohol 1.4%/Povidone 0.6% Opth Drops EA EYE SCH ×4 (08:28→21:03)
[2019-07-21] MEDS: Donepezil HCl 10 MG TAB PO SCH (08:28)
--- NOTE | 2019-07-21 18:01 | PRG ---
DATE OF SERVICE: 07/21/2019 SUBJECTIVE: The patient is currently on the surgical floor. She has been awaiting placement decision jail versus rehab. It has been reported that she has been declined for inpatient rehab ans has been approved by the insurance company for jail placement. I discussed with the patient and her this morning that this was still appropriate course of action and that she may actually do better with a slower pace therapy that she will get at a jail facility. They are both in agreement with this and the case management team will work on this today. She is tolerating a diet. Her pain is controlled. PHYSICAL EXAMINATION: VITAL SIGNS: Temperature is 97.9, heart rate 60, blood pressure 125/63, respirations 15, and oxygen saturation 94% on room air. GENERAL: The patient is resting comfortably in bed. She has just completed her breakfast. She is awake, alert, and oriented x3. HEENT: Unremarkable. LUNGS: Clear to auscultation with good inspiratory and expiratory effort. HEART: Regular rate and rhythm. ABDOMEN: Soft, flat, and nontender with active bowel sounds. EXTREMITIES: Neurovascularly intact x4. LABORATORY DATA: There are no labs or radiographs to review this morning. ASSESSMENT AND PLAN: 1. Status post ground-level fall. 2. Left acetabular fracture, treated nonoperatively. 3. Left hip contusion, stable, improved. 4. History of hypothyroidism, hyperlipidemia, and "short-term memory loss.". Plan will be to continue supportive therapy, physical and occupational therapy, and await final placement decision, which we suspect will be within the next 24 hours. Job ID: [id number]
--- NOTE | 2019-07-21 23:46 | PRG ---
DATE OF SERVICE: 07/21/2019 Ms. Valladares is a 74-year-old female, who is status post ground level fall. She sustained left acetabular fracture, left hip contusion, conservative treatment. She also has a history of hypothyroid, hyperlipidemia, and memory loss. Currently, the patient doing good. Pain is well controlled. She tolerated with her regular diet. Her urination and bowel were normal. She developed no fever or shortness of breath. Vital signs are stable. Plan will be to continue supportive care. Continue pain control. She will be working with PT/OT tomorrow. Anticipate placement in rehabilitation facility tomorrow. Job ID: [id number]
[2019-07-22] MEDS: Acetaminophen 325 MG TAB PO SCH ×2 (05:39→12:36)
[2019-07-22] MEDS: Ibuprofen 600 MG TAB PO SCH ×2 (05:39→14:54)
[2019-07-22] MEDS: Levothyroxine Sodium 50 MCG TAB PO SCH (05:39)
[2019-07-22] MEDS: Aspirin 81 mg Enteric Coated Tablet PO SCH (10:04)
[2019-07-22] MEDS: Cyanocobalamin (Vitamin B-12) 1,000 MCG TAB PO SCH (10:04)
[2019-07-22] MEDS: Donepezil HCl 10 MG TAB PO SCH (10:04)
[2019-07-22] MEDS: VORTIOXETINE HYDROBROMIDE 5 MG PO SCH (10:05)
[2019-07-22] MEDS: Polyethylene Glycol 3350 17 GM Packet PO SCH (10:06)
[2019-07-22] MEDS: Polyvinyl Alcohol 1.4%/Povidone 0.6% Opth Drops EA EYE SCH ×2 (10:06→14:54)
[2019-07-22] MEDS: Senokot S 8.6-50 MG TAB PO SCH (10:07)
[2019-07-22 15:58] VITALS: BP 130/60; TEMP 97.7
--- NOTE | 2019-07-22 23:05 | DIS ---
DATE OF ADMISSION: 07/16/2019 DATE OF DISCHARGE: 07/22/2019 ADMISSION DIAGNOSES: 1. Status post mechanical fall. 2. Left acetabular fracture. 3. Left hip contusion. 4. History of hypothyroidism, hyperlipidemia, and "short-term memory problems.". 5. Acute pain secondary to trauma. CONSULTATIONS: Orthopedics, Dr. Dorman. PROCEDURES: None. SUMMARY: The patient is a 74-year-old woman, who was walking at home when she slipped and fell, landed on a hardwood floor. She was brought to the emergency department where she underwent evaluation and examination and was noted to have the above injuries. She was evaluated by Dr. Dorman, who reviewed her radiographs and her CT and determined that the patient be managed nonoperatively. The patient initially was tried to send to rehab but that was unavailable at the time due to insurance. Over the next several days, we will work with her insurance to get her finally placed in a half-way facility. The patient at time of discharge was progressing with physical and occupational therapy. She was tolerating a diet. Her bowel function returned and her pain was controlled. She will follow up with Dr. Dorman in 2-3 weeks, sooner as needed. Job ID: [id number]
== END 2019-07-22 18:12 ==
LOC: ERS 13:42 → SURG A 17:44
PROVIDERS: ADMIT Specialist; ATTEND Specialist
DX: S32.435A Nondisplaced fracture of anterior column [iliopubic] of left acetabulum, initial encounter for closed fracture (principal); S70.02XA Contusion of left hip, initial encounter; G89.11 Acute pain due to trauma; E03.9 Hypothyroidism, unspecified; E78.5 Hyperlipidemia, unspecified; F32.9 Major depressive disorder, single episode, unspecified; F03.90 Unspecified dementia, unspecified severity, without behavioral disturbance, psychotic disturbance, mood disturbance, and anxiety; E87.70 Fluid overload, unspecified; Z79.82 Long term (current) use of aspirin; Z79.899 Other long term (current) drug therapy; Z88.5 Allergy status to narcotic agent; Z88.8 Allergy status to other drugs, medicaments and biological substances; W01.0XXA Fall on same level from slipping, tripping and stumbling without subsequent striking against object, initial encounter
CPT/HCPCS: 71045; 72170; 72192; 73502; 80053; 81003; 85025; 85610; 85730; 86850; 86900; 86901; 93005; 94760; 96361; 96365; 96375; 97116 ×5; 97139 ×5; 97530 ×3; 97535; 99285; G0378 ×7; 36415; G0390; J1885; J2405; J2550; J3010

== ENCOUNTER 2020-05-31 10:45 | Outpatient (CLI) | payer MEDICARE, MEDICAID ==
--- NOTE | 2020-05-31 19:13 | PET ---
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 PET scan and attenuation correction CT performed through brain. FINDINGS: There is significantly decreased uptake in the posterior cingulate gyrus, precuneus, bilateral pariet al lobes, and posterior temporal lobes. IMPRESSION: Alzheimer's disease.
== END 2020-05-31 10:46 | disposition home or self-care (01) ==
LOC: PET 10:45
PROVIDERS: ATTEND Psychiatry & Neurology Neurology
DX: G31.1 Senile degeneration of brain, not elsewhere classified (principal); G30.9 Alzheimer's disease, unspecified
CPT/HCPCS: 78803; A9552

== ENCOUNTER 2021-11-01 14:38 | Observation (INO) | payer MEDICARE, MEDICAID ==
[~2021-11-01 14:38] MED LIST changes: -ISOVUE-370 76%-LOCM 1 ML ONE; +Iopamidol 370 76% 100 ML VIAL ONE
[2021-11-01] MEDS ORDERED: Aspirin Chewable 81 MG TAB ONE (15:28)
[2021-11-01 15:35] LABS: #Eosinphils 0.1 thou/uL (0.0-0.7); #Lymphocytes 1.3 thou/uL (1.20-3.40); #Monocytes 0.6 thou/uL (0.11-0.59); #Neutrophils 4.6 thou/uL (1.40-6.50); %Basophils 0.3 % (0.0-1.0); %Eosinophils 1.6 % (0.0-10.0); %Lymphocytes 19.4 % (21.0-51.0); %Neutrophils 69.7 % (42.0-75.0); Hemoglobin 11.9 g/dL (12.0-16.0); Mean Corpuscular HGB CONC 31.9 g/dL (32.0-36.0); Mean Corpuscular Volume 94.1 fL (78.0-98.0); Mean Platelet Volume 8.8 fL (7.4-10.4); Platelet Count 212 thou/uL (130-400); RBC Distribution Width 12.1 % (11.5-14.5); Red Blood Cell (RBC) Count 3.98 mill/uL (4.20-5.40); White Blood Cell (WBC) Count 6.6 thou/uL (4.8-10.8)
[2021-11-01 15:45] LABS: Prothrombin Time 13.1 sec (12.0-14.7)
[2021-11-01 15:47] LABS: PTT 27.3 sec (22.9-36.1)
[2021-11-01 15:56] LABS: ALT (SGPT) 15 U/L (8-55); AST (SGOT) 16 U/L (5-34); Albumin 4.1 g/dL (3.4-4.8); Alkaline Phosphatase 43 U/L (40-110); Anion Gap 12 mmol/L (10-20); BUN (Urea Nitrogen) 13 mg/dL (9.8-20.1); Bilirubin, Total 0.5 mg/dL (0.2-1.2); Calc. Creatinine Clearance 0 mL/min (70-130); Calcium 9.6 mg/dL (7.8-10.44); Carbon Dioxide 27 mmol/L (23-31); Chloride 105 mmol/L (98-107); Globulin 2.6 g/dL (2.4-3.5); Glucose 89 mg/dL (83-110); Potassium 3.6 mmol/L (3.5-5.1); Protein, Total 6.7 g/dL (5.8-8.1); Sodium 140 mmol/L (136-145)
[2021-11-01 18:01] LABS: Bacteria/HPF None Seen HPF (None Seen); Bilirubin Negative (Negative); Blood, Urine Negative (Negative); Clarity Turbid (Clear); Glucose, Urine (Dipstick) Normal (Negative); Ketone, Urine 10 mg/dL (Negative); Leukocyte 75 Leu/uL (Negative); Nitrite 2+ (Negative); Protein, Urine (Dipstick) Negative (Neg-Trace); Squamous Epithelial 0-3 HPF (0-3); Urobilinogen Normal mg/dL (Less than 2)
[2021-11-01] MEDS ORDERED: risperiDONE 1 MG TAB ONE (18:55)
[2021-11-01] MEDS ORDERED: risperiDONE 1 MG TAB PO SCH (19:00)
[2021-11-01] MEDS ORDERED: Haloperidol Lactate 5 MG/ML VIAL SLOW IVP SCH (20:00)
[2021-11-01] MEDS ORDERED: hydrALAZINE 20 MG/ML VIAL SLOW IVP PRN (20:44)
[2021-11-01] MEDS ORDERED: Acetaminophen 325 MG TAB PO PRN (20:44)
[2021-11-01 21:58] LABS: Magnesium 2.2 mg/dL (1.6-2.6)
[2021-11-01 22:03] LABS: Hemoglobin A1c 6.2 % (4.0-6.0)
[2021-11-01] MEDS: Atorvastatin Calcium 40 MG TAB PO SCH (22:54)
[2021-11-01 22:58] VITALS: BMI 21.9
[2021-11-02] MEDS: Levothyroxine Sodium 88 MCG TAB PO SCH (06:07)
[2021-11-02] MEDS ORDERED: Aspirin 325 mg Enteric Coated Tablet PO SCH (09:00)
[2021-11-02] MEDS ORDERED: FLU VACC QS2021-22(65YR UP)/PF 240 MCG/0.7 ML SYRINGE IM ONE (09:00)
[2021-11-02] MEDS: risperiDONE 1 MG TAB PO SCH ×2 (09:01→20:21)
[2021-11-02] MEDS: Aspirin 81 mg Enteric Coated Tablet PO SCH (09:01)
[2021-11-02] MEDS: Acetaminophen 325 MG TAB PO SCH ×2 (09:01→20:21)
[2021-11-02] MEDS: Cyanocobalamin (Vitamin B-12) 1,000 MCG TAB PO SCH (09:02)
[2021-11-02] MEDS: Ascorbic Acid 500 mg Chewable Tablet PO SCH (09:02)
[2021-11-02] MEDS: Enoxaparin Sodium 40 MG/0.4 ML SYRINGE SC SCH (09:02)
[2021-11-02] MEDS ORDERED: Haloperidol Lactate 5 MG/ML VIAL SLOW IVP SCH (17:15)
[2021-11-02] MEDS: Atorvastatin Calcium 40 MG TAB PO SCH (20:21)
[2021-11-02] MEDS: Melatonin 3 MG TAB PO SCH (20:21)
[2021-11-03] MEDS: Levothyroxine Sodium 88 MCG TAB PO SCH (05:43)
[2021-11-03] MEDS ORDERED: Dextrose 50% Abboject 50 ML SYRINGE SLOW IVP PRN (06:29)
[2021-11-03] MEDS ORDERED: Dextrose 5% in Water 1,000 ML IV PRN (06:29)
[2021-11-03] MEDS ORDERED: HumaLOG 300 UNITS/3 ML VIAL SC PRN ×2 (06:29)
[2021-11-03] MEDS: Acetaminophen 325 MG TAB PO SCH ×2 (09:11→20:40)
[2021-11-03] MEDS: Ascorbic Acid 500 mg Chewable Tablet PO SCH (09:12)
[2021-11-03] MEDS: Cyanocobalamin (Vitamin B-12) 1,000 MCG TAB PO SCH (09:12)
[2021-11-03] MEDS: Aspirin 81 mg Enteric Coated Tablet PO SCH (09:13)
[2021-11-03] MEDS: Enoxaparin Sodium 40 MG/0.4 ML SYRINGE SC SCH (09:13)
[2021-11-03] MEDS: risperiDONE 1 MG TAB PO SCH ×2 (09:13→20:40)
[2021-11-03] MEDS ORDERED: ALPRAZolam 0.25 MG TAB PO SCH (10:30)
[2021-11-03] MEDS: Atorvastatin Calcium 40 MG TAB PO SCH (20:40)
[2021-11-03] MEDS: Melatonin 3 MG TAB PO SCH (20:40)
[2021-11-03 21:45] LABS: SARS-CoV-2 PCR by NAA Not Detected (NotDetected)
[2021-11-04] MEDS: Levothyroxine Sodium 88 MCG TAB PO SCH (06:52)
[2021-11-04] MEDS: Enoxaparin Sodium 40 MG/0.4 ML SYRINGE SC SCH (08:01)
[2021-11-04] MEDS: Acetaminophen 325 MG TAB PO SCH ×2 (08:02→20:21)
[2021-11-04] MEDS: Aspirin 81 mg Enteric Coated Tablet PO SCH (08:03)
[2021-11-04] MEDS: Cyanocobalamin (Vitamin B-12) 1,000 MCG TAB PO SCH (08:03)
[2021-11-04] MEDS: risperiDONE 1 MG TAB PO SCH ×2 (08:04→20:22)
[2021-11-04] MEDS: Ascorbic Acid 500 mg Chewable Tablet PO SCH (08:05)
[2021-11-04] MEDS ORDERED: ALPRAZolam 0.25 MG TAB PO SCH (10:00)
[2021-11-04] MEDS: Atorvastatin Calcium 40 MG TAB PO SCH (20:21)
[2021-11-04] MEDS: Melatonin 3 MG TAB PO SCH (20:22)
[2021-11-05] MEDS: Levothyroxine Sodium 88 MCG TAB PO SCH (06:01)
[2021-11-05] MEDS: Acetaminophen 325 MG TAB PO SCH (08:53)
[2021-11-05] MEDS: Aspirin 81 mg Enteric Coated Tablet PO SCH (08:53)
[2021-11-05] MEDS: Ascorbic Acid 500 mg Chewable Tablet PO SCH (08:53)
[2021-11-05] MEDS: risperiDONE 1 MG TAB PO SCH (08:54)
[2021-11-05] MEDS: Cyanocobalamin (Vitamin B-12) 1,000 MCG TAB PO SCH (08:55)
[2021-11-05] MEDS: Enoxaparin Sodium 40 MG/0.4 ML SYRINGE SC SCH (08:55)
[2021-11-05 11:49] VITALS: TEMP 97.5
[2021-11-05 11:50] VITALS: BP 141/70
[2021-11-05] MEDS ORDERED: cefTRIAXone\\ROCEPHIN 1 GM VIAL IM SCH ×2 (12:45→14:45)
[2021-11-05 13:10] LABS: Bacteria/HPF 4+ HPF (None Seen); Bilirubin Negative (Negative); Blood, Urine Negative (Negative); Clarity Turbid (Clear); Glucose, Urine (Dipstick) Normal (Negative); Ketone, Urine Negative (Negative); Leukocyte 250 Leu/uL (Negative); Nitrite Negative (Negative); Protein, Urine (Dipstick) 10 mg/dL (Neg-Trace); RBC/HPF 0-3 HPF (0-3); Specific Gravity, Urine 1.015 (1.002-1.036); Squamous Epithelial None Seen HPF (0-3); Urobilinogen Normal mg/dL (Less than 2); WBC/HPF 21-50 HPF (0-3)
[2021-11-05 13:11] LABS: Urine Culture Reflex Yes Yes
[2021-11-05] MEDS ORDERED: Lidocaine 1% PF 10 ML AMP FS SCH (14:45)
== END 2021-11-05 15:22 ==
LOC: ERS 14:38 → NEURO 17:23
PROVIDERS: ADMIT Family Medicine; ATTEND Family Medicine
DX: G45.9 Transient cerebral ischemic attack, unspecified (principal); I50.30 Unspecified diastolic (congestive) heart failure; N39.0 Urinary tract infection, site not specified; R73.03 Prediabetes; E03.9 Hypothyroidism, unspecified; G30.9 Alzheimer's disease, unspecified; F02.80 Dementia in other diseases classified elsewhere, unspecified severity, without behavioral disturbance, psychotic disturbance, mood disturbance, and anxiety; E78.5 Hyperlipidemia, unspecified; G25.0 Essential tremor; I08.8 Other rheumatic multiple valve diseases; Z66 Do not resuscitate; Z79.82 Long term (current) use of aspirin; Z79.899 Other long term (current) drug therapy; Z88.5 Allergy status to narcotic agent; Z88.8 Allergy status to other drugs, medicaments and biological substances; Z20.822 Contact with and (suspected) exposure to COVID-19
CPT/HCPCS: 51701; 70450; 70496; 70498; 70551; 71045; 80061; 81001; 82962 ×3; 83036; 83735; 83880; 84100; 84484; 85610; 85730; 87077; 87086; 87186; 93005; 93306; 96372 ×4; 97116 ×2; 97139 ×6; 97530 ×2; 99285; G0378 ×6; U0003; U0005; 36415; 36416; 80053; 81003; 81015; 84443; 85025; J0696; J1650; J2001; Q9967